=== PATIENT | female | born 1990 | race Two or more races ===

== ENCOUNTER 2021-06-03 13:52 | Day surgery (SDC) | payer OTHER ==
[~2021-06-03] VITALS: Ht 157.5 cm; Wt 98.9 kg
[2021-06-03] MEDS ORDERED: ASCORBIC ACID500 MG PO (15:42)
[2021-06-03] MEDS ORDERED: PRENATAL FORMU1 EACH PO (15:42)
[2021-06-03] MEDS ORDERED: VITAMIN D3125 MC1 PO (15:43)
[2021-06-03] MEDS ORDERED: METFORMIN HCL500 MG PO (15:43)
[2021-06-03 16:59] LABS: BASOPHIL 0.3 % (0-2); EOSINOPHIL 2.6 % (0-5); HCT 38.1 % (37.0-47.0); HGB 12.2 g/dl (12.5-16.0); LYMPHOCYTE 20.9 % (15-48); MCH 28.1 pg (25.0-31.0); MCV 87.8 fL (78.0-100.0); MONOCYTE 4.5 % (0-12); MPV 10.4 fL (6.0-9.5); NEUTROPHIL 71.4 % (41-80); NRBC 0; PLT 298 K/uL (150-400); RBC 4.34 M/uL (4.20-5.40); RDW 12.7 % (11.5-14.0); WBC 11.2 K/uL (4.0-10.5)
[2021-06-03] MEDS ORDERED: KETOROLAC TROME10 MG PO (17:50)
== END 2021-06-03 22:51 | disposition home or self-care (01) ==
LOC: FAS 13:52 → FOB 16:12 → FAS 22:51
PROVIDERS: Specialist
DX: O02.1 Missed abortion (principal); Z20.822 Contact with and (suspected) exposure to COVID-19
CPT/HCPCS: 36415; 85025; 86850; 86900; 86901; J0690; J1100; J1170; J1885; J2001; J2250; J2405; J2704; J3010; J7120; U0002